=== PATIENT | female | born 1995 | race Caucasian/White ===

== ENCOUNTER 2018-10-19 11:20 | Outpatient (REF) | payer MEDICAID, SELFPAY ==
--- NOTE | 2018-10-19 10:45 | PAPFT_PTH ---
PATIENT: Mehreen Sosa LOC: [facility] U#:[id number] AGE/SX: 23/F ROOM: RE10/19/[address]: RAINER Milton : 1995 BED: DIS: 10/19/2018 SPEC #: [id number] RECD: 10/19/18 17:31 STATUS: CASIE REJs #: [id number] ALEN: 10/19/18 10:[address]: Davina Aleman [facility] Cytology RECD BY: Anne Yousif ENTERED: 10/19/18 17:32 SP TYPE: PAPFT OTHR DR: Valentin Hills Tissues: 1 - CX/ENDOCX FOR PAP SMEARS Procedures: PAP THIN PREP/[facility] Screening Comments: [id number]
[2018-10-20 12:32] LABS: Chlamydia Result Negative; GC Result Negative; Specimen Description CERVIX
== END 2018-10-19 11:40 ==
LOC: LBN 11:20
PROVIDERS: PCP Internal Medicine; Visit Provider Nurse Practitioner Family
DX: Z11.3 Encounter for screening for infections with a predominantly sexual mode of transmission (principal); Z12.4 Encounter for screening for malignant neoplasm of cervix
CPT/HCPCS: 87491; 87591; 88142

== ENCOUNTER 2019-02-15 01:53 | Outpatient (CLI) | payer MEDICAID, SELFPAY ==
--- NOTE | 2019-02-15 08:00 | PFT_ITS ---
DATE: FEBRUARY 15, 2019 REQUESTING PROVIDER: Bhavya Gonsales N.P. INTERPRETATION: SPIROMETRY: Spirometry shows mild obstructive airways disease with no significant bronchodilator response. LUNG VOLUMES: Lung volumes show no evidence of restriction. DIFFUSION CAPACITY: Borderline mildly reduced which is normal when corrected to alveolar volume. AIRWAY RESISTANCE: Normal. IMPRESSION: Mild obstructive airways disease with no significant bronchodilator response. Clinical correlation recommended.
[2019-02-15] MEDS: Inhaler, Assist Device 1 EACH MC (11:02)
[2019-02-15] MEDS: Albuterol HFA 18 GM 200 PUFF INH IH (11:03)
== END 2019-02-15 02:13 ==
PROVIDERS: PCP Internal Medicine; Visit Provider Nurse Practitioner Family
DX: R06.2 Wheezing (principal); J45.909 Unspecified asthma, uncomplicated; F17.210 Nicotine dependence, cigarettes, uncomplicated
CPT/HCPCS: 94060; 94150; 94726; 94729

== ENCOUNTER 2023-01-03 12:54 | Outpatient (REF) | payer OTHER, MEDICAID, SELFPAY ==
--- NOTE | 2023-01-03 10:50 | PAPFT_PTH ---
PATIENT: Mehreen Sosa LOC: [facility] U#:[id number] AGE/SX: 27/F ROOM: RE01/03/[address]: Dara Saunders : 1995 BED: DIS: 01/03/2023 SPEC #: [id number] RECD: 01/03/23 13:02 STATUS: CASIE REQ #: [id number] ALEN: 01/03/23 10:[address]: Dara Saunders DEPT: [facility] Cytology RECD BY: Anne Yousif ENTERED: 01/03/23 13:02 SP TYPE: PAPFT OTHR DR: Valentin Hills Tissues: 1 - CX/ENDOCX FOR PAP SMEARS Procedures: PAP THIN PREP/[facility] Screening Comments: [id number] (UNSATISFACTORY FOR EVALUATION)
[2023-01-04 15:57] LABS: Chlamydia Result Negative (Negative); GC Result Negative (Negative)
== END 2023-01-03 12:55 | disposition home or self-care (01) ==
LOC: LBN 12:54
PROVIDERS: PCP Internal Medicine; Visit Provider Advanced Practice Midwife
DX: Z11.3 Encounter for screening for infections with a predominantly sexual mode of transmission (principal); Z12.4 Encounter for screening for malignant neoplasm of cervix; R87.615 Unsatisfactory cytologic smear of cervix
CPT/HCPCS: 87491; 87591; 88142

== ENCOUNTER 2023-01-10 03:25 | Outpatient (CLI) | payer OTHER, MEDICAID, SELFPAY ==
[2023-01-11 09:26] LABS: Hepatitis B Surface Ag Negative (Negative)
[2023-01-11 09:53] LABS: Hepatitis C Ab w Rflx HCV PCR Negative (Negative)
[2023-01-11 10:14] LABS: HIV-1/2 Ag & Ab Screen Negative (Negative)
[2023-01-12 19:04] LABS: Syphilis IgG w/Reflex Nonreactive (Nonreactive)
== END 2023-01-10 03:26 | disposition home or self-care (01) ==
PROVIDERS: PCP Internal Medicine; Visit Provider Advanced Practice Midwife
DX: Z34.91 Encounter for supervision of normal pregnancy, unspecified, first trimester (principal); Z3A.00 Weeks of gestation of pregnancy not specified
CPT/HCPCS: 36415; 86803; 87340; 87389; 86780

== ENCOUNTER 2023-01-13 11:50 | Outpatient (REF) | payer OTHER, MEDICAID, SELFPAY ==
--- NOTE | 2023-01-13 11:00 | PAPFT_PTH ---
PATIENT: Mehreen Sosa LOC: [facility] U#:[id number] AGE/SX: 27/F ROOM: RE01/13/[address]: Dara Saunders : 1995 BED: DIS: 01/13/2023 SPEC #: [id number] RECD: 01/13/23 12:51 STATUS: CASIE REQ #: [id number] ALEN: 01/13/23 11:[address]: Dara Saunders DEPT: [facility] Cytology RECD BY: Anne Yousif ENTERED: 01/13/23 12:52 SP TYPE: PAPFT OTHR DR: Valentin Hills Tissues: 1 - CX/ENDOCX FOR PAP SMEARS Procedures: PAP THIN PREP/[facility] Screening Comments: [id number]
== END 2023-01-13 11:51 | disposition home or self-care (01) ==
LOC: LBN 11:50
PROVIDERS: PCP Internal Medicine; Visit Provider Advanced Practice Midwife
DX: R87.615 Unsatisfactory cytologic smear of cervix (principal)
CPT/HCPCS: 88142

== ENCOUNTER 2023-10-06 02:52 | Outpatient (CLI) | payer MEDICAID, SELFPAY ==
--- OUTSIDE RECORDS SUMMARY | 2023-10-06 02:52 | XMS_ITS | Encounter Summary ---
Author Organization [facility] Address [facility] [address] [place] [address] Care Team Providers Care Search Coordinator Name Role Phone Valentin Hills MD Primary Care Provider [phone] Encounter Details Date Type Department Care Team (Late st Contact Info) Description 04/02/2010 1:00 PM EST Follow-[place] [address] Aurelio Ga APRN [facility] [place] [address] Discharge Disposition: Home Social History Tobacco Use Types Packs/Day Years Used Date Smoking Tobacco: Never Assessed Sex and Gender Information Value Date Recorded Sex Assigned at Not on file Gender Identity Not on file Sexual Orientation Not on file documented as of this encounter Plan of Treatment Not on file documented as of this encounter Visit Diagnoses Not on filedocumented in this encounter Care Teams Search Coordinator Relationship Specialty Start Date End Date Valentin Hills MD [address] [place] [address] PCP - General 03/12/10 documented as of this encounter
--- OUTSIDE RECORDS SUMMARY | 2023-10-06 02:52 | XMS_ITS | Clinical Summary ---
Author Organization [facility] [place] [address] Care Team Providers Care Health Teacher Name Role Phone Valentin Hills MD Primary Care Provider Allergies No known active allergies Medications Medication Sig Dispensed Refills Start Date End Date Status SERTRALINE HCL (ZOLOFT ORAL) 04/02/2010 Active Social History Tobacco Use Types Packs/Day Years Used Date Smoking Tobacco: Never Assessed Sex and Gender Information Value Date Recorded Sex Assigned at Not on file Gender Identity Not on file Sexual Orientation Not on file Plan of Treatment Health Maintenance Due Date Last Done Comments HPV vaccine (1 - 3-dose series) 02/11/2012 HIV screen 2015 Hepatitis C Screening 2015 Hepatitis B vaccine (0-59 yrs) (1) 02/11/2016 Tdap adult 02/11/2016 Tetanus vaccine 02/11/2016 PAP Smear 2018 Covid-19 Vaccine (2022-24 season) 2022 Influenza (Flu) vaccine (1 o f 1 - Influenza standard series) 11/13/2023 Care Teams Health Teacher Relationship Specialty Start Date End Date Valentin iHlls MD [address] [place] [address] PCP - General 03/12/10
--- OUTSIDE RECORDS SUMMARY | 2023-10-06 02:53 | XMS_ITS | Encounter Summary ---
Author Organization [facility] Address [address] [place] [address] Care Team Providers Care Sheet Metal Journeyman Name Role Phone Valentin Hills MD Primary Care Provider [phone] Encounter Details Date Type Department Care Team (Late st Contact Info) Description 01/17/2023 Lab Requisition [facility] Pathology & Laboratory Medicine - [facility] [address] [place] [address] [place], [place] [id number] Encounter for other general examination Social History Tobacco Use Types Packs/Day Years Used Date Smoking Tobacco: Never Assessed Interpersonal Safety Answer Date Record ed Physically Hurt Never 10/14/2019 Verbally Threaten Not on file 10/14/2019 Sex and Gender Information Value Date Recorded Sex Assigned at Not on file Gender Identity Not on file Sexual Orientation Not on file documented as of this encounter Plan of Treatment Not on file documented as of this encounter Procedures Procedure Name Priority Date/Time Associated Diagnosis Comments PAP TEST Today 01/13/2023 11:00 EDT Encounter for other general examination documented in this encounter Results * PAP TEST (01/13/2023 11:00 EDT) Specimens A. Cervix and/or Endocervix , ThinPrep Imaging System with Manual Evaluation 01/20/2023 12:27 [facility] Specimen Adequacy Satisfactory for Evaluation - transformation zone component present Scant squamous epithelial component due to excess mucus. 01/20/2023 12:27 [facility] General Categorization Negative for intraepithelial lesion or malignancy 01/20/2023 12:27 [facility] Attestation . 01/20/2023 12:27 EST [facility] at 1227 Clinical History See below 01/21/20 12:27 EST [facility] Performing Lab [facility] 01/20/2023 12:27 EST [facility] Scanned Images 01/20/2023 12:27 EST [facility] Pap Test CERVIX UTERI STRUCTURE / Unknown 01/13/2023 11:00 EDT 01/17/2023 15:13 EST Dara Saunders [facility] LUDMILA BARCLAY [facility] [address] [place] [address] documented in this encounter Visit Diagnoses Diagnosis Encounter for other general examination documented in this encounter Care Teams Sheet Metal Journeyman Relationship Specialty Start Date End Date Valentin Hills MD [address] [place] [address] PCP - General 02/17/11 documented as of this encounter
--- OUTSIDE RECORDS SUMMARY | 2023-10-06 02:53 | XMS_ITS | Encounter Summary ---
Author Organization [facility] Address [address] [place] [address] Care Team Providers Care Automatic Grinding Machine Operator Name Role Phone Valentin Hills MD Primary Care Provider [phone] Encounter Details Date Type Department Care Team (Late st Contact Info) Description 01/04/2023 Lab Requisition [facility] Pathology & Laboratory Medicine - [facility] [address] [place] [address] [place], [place] [id number] Encounter for other general examination Social History [...] Date/Time Associated Diagnosis Comments PAP TEST Today 01/03/2023 10:50 EDT Encounter for other general examination documented in this encounter Results * PAP TEST (01/03/2023 10:50 EDT) Specimens A. Cervix and/or Endocervix , ThinPrep Imaging System with Manual Evaluation 01/07/2023 15:10 [facility] Specimen Adequacy Unsatisfactory for evaluation-Insuf ficient number of squamous epithelial cells. Specimen processed and examined but preparation compromised by lubricant or other vaginal contaminant. 01/07/2023 15:10 [facility] General Categorization Unsatisfactory 01/07/2023 15:10 EDT [facility] Educational Comments Unsatisfactory - Specimen processed and examined, but unsatisfactory for evaluation of epithelial abnormality. Recommend repeat age-based screening after 2-4 months per ASCCP Guidelines which may be found at www.asccp.org. HPV testing will not be performed due to the potential for false negative results. 01/07/2023 15:10 EDT [facility] Attestation . 01/07/2023 15:10 T [facility] at 1510 Clinical History See below 01/08/20 15:10 T [facility] Performing Lab [facility] 01/07/2023 15:10 T [facility] Scanned Images 01/07/2023 15:10 EDT [facility] Pap Test CERVIX UTERI STRUCTURE / Unknown 01/03/2023 10:50 EDT 01/04/2023 11:38 EDT Dara Saunders [facility] LUDMILA BARCLAY [facility] [address] [place] [address] documented in this encounter Visit Diagnoses Diagnosis Encounter for other general examination documented in this encounter Care Teams Automatic Grinding Machine Operator Relationship Specialty Start Date End Date Valentin Hills MD [address] [place] [address] PCP - General 02/17/11 documented as of this encounter
--- OUTSIDE RECORDS SUMMARY | 2023-10-06 02:53 | XMS_ITS | Referral Summary ---
Author Organization [facility] Address [address] [place] [address] Care Team Providers Care Director Of Respiratory Therapy Name Role Phone Valentin Hills MD Primary Care Provider [phone] Social History Tobacco Use Types Packs/Day Years Used Date Smoking Tobacco: Never Assessed Interpersonal Safety Answer Date Record ed Physically Hurt Never 10/14/2019 Verbally Threaten Not on file 10/14/2019 Sex and Gender Information Value Date Recorded Sex Assigned at Not on file Gender Identity Not on file Sexual Orientation Not on file Plan of Treatment Not on file Procedures Procedure Name Priority Date/Time Associated Diagnosis Comments HEPATITIS C AB W REFLEX TO HCV RNA BY PCR Routine 01/10/2023 11:45 EDT from Last 3 Months or Most Recently Relevant to Health Maintenance Results * HEPATITIS C AB W REFLEX TO HCV RNA BY PCR (01/10/2023 11:45 EDT) Hep C Antibody Negative Negative 01/11/2023 9:48 EDT [facility] Blood VENOUS BLOOD / Unknown 01/10/2023 11:45 EDT 01/10/2023 16:49 EDT Provider Outr Resulting Lab CHEMISTRY & BLOOD GAS ORDERABLES [facility] [address] [place] [address] from Last 3 Months or Most Recently Relevant to Health Maintenance Care Teams Director Of Respiratory Therapy Relationship Specialty Start Date End Date Valentin Hills MD [address] [place] [address] PCP - General 02/17/11
--- OUTSIDE RECORDS SUMMARY | 2023-10-06 02:53 | XMS_ITS | Encounter Summary ---
Author Organization [facility] Address [facility] [address] [place] [address] Care Team Providers Care Account Support Associate Name Role Phone Valentin Hills MD Primary Care Provider [phone] Encounter Details Date Type Department Care Team (Late st Contact Info) Description 03/12/2010 [place] [phone] Lily Matamoros MD [facility] [place] [address] Social History Tobacco Use Types Packs/Day Years Used Date Smoking Tobacco: Never Assessed Sex and Gender Information Value Date Recorded Sex Assigned at Not on file Gender Identity Not on file Sexual Orientation Not on file documented as of this encounter Plan of Treatment Not on file documented as of this encounter Procedures Procedure Name Priority Date/Time Associated Diagnosis Comments ABO/RH TYPING Routine 03/12/2010 6:05 PM EST ANTIBODY SCREEN Routine 03/12/2010 6:05 PM EST DIFFERENTIAL, AUTOMATED STAT 03/12/2010 5:50 PM EST CREATININE STAT 03/12/2010 5:50 PM EST APTT STAT 03/12/2010 5:50 PM EST PROTHROMBIN TIME STAT 03/12/2010 5:50 PM EST CBC (WITH DIFF) STAT 03/12/2010 5:50 PM EST BUN STAT 03/12/2010 5:50 PM EST GLUCOSE, RANDOM STAT 03/12/2010 5:50 PM EST ELECTROLYTES PANEL STAT 03/12/2010 5: 50 PM EST documented in this encounter Results * REFLEX LAB-ANTIBODY SCREEN (03/12/2010 6:05 PM EST) Ab Screen Interp Negative CERNER MILLENNIUM Expires at 2359 on: [id number] CERNER MILLENNIUM Blood specimen (specimen) 03/12/2010 6:05 PM EST 03/12/2010 6:05 PM EST Lily Matamoros MD BLOOD BANK LAB ORDER [facility] FonJaxENNIUM * REFLEX LAB-ABO/RH (03/12/2010 6:05 PM EST) ABORH Type O Pos CERNER MILLENNIUM Blood specimen (specimen) 03/12/2010 6:05 PM EST 03/12/2010 6:05 PM EST Lily Matamoros MD BLOOD BANK LAB ORDER CHARLES CERFriend TravelerENNIUM * (ABNORMAL) ELECTROLYTE PANEL (03/12/2010 5:50 PM EST) Sodium 140 135 - 145 mmol/L CERNER MILLENNIUM Potassium 3.4(L) 3.5 - 5.0 mmol/L CERNER MILLENNIUM Comment: Please note: ??Patients with WBC >100,000 may have falsely elevated Potassium levels. ??For accurate Potassium quantification in these patients send serum separator tube (gold top) for subsequent determinations. ??Contact the Clinical Chemistry Laboratory if there are any questions. Chloride 108(H) 98 - 107 mmol/L CERNER MILLENNIUM CO2 25 22 - 31 mmol/L CERNER MILLENNIUM Anion Gap 7 5 - 15 mmol/L CERNER MILLENNIUM Blood specimen (specimen) 03/12/2010 5:50 PM EST 03/12/2010 6:00 PM EST Lily Matamoros MD CHEMISTRY ORDERABLES Performing Organization Address City/[facility] Co de Phone Number CERNER LOLIENNIUM * CREATININE, SERUM (03/12/2010 5:50 PM EST) Creatinine 0.53 0.20 - 0.70 mg/dL CERNER MILLENNIUM Estimated GFR See note >=60 CERNER MILLENNIUM Comment: Calculated GFR not appropriate for patients less than 18 years of age. The National Kidney Disease Education Program (NKDEP) has recommended all laboratories report estimated GFR (eGFR) along with plasma creatinine measurements to assist you with recognition of early kidney disease. Caveats: ??Plasma creatinine should be at steady-state (unchanged within the past week). ??Patient age > = 18 years, and for Americans multiply eGFR by 1.2. At present, NKDEP does NOT recommend using the MDRD equation for drug dosing purposes and pharmacists should continue to use their current dosing methods. In addition, numerical eGFR values greater than 60 ml/min/1.73 square meters should be treated as > 60, and not an exact number due to greater inaccuracies at these higher values. Per NKDEP, they classify normal renal function as any GFR >60ml/min/1.73 square meters; chronic kidney disease when GFR <60, and renal failure when GFR <15. ??This calculation may not be valid for patients with atypical muscle mass (very lean or obese), acute renal failure, and in patients with diabetic kidney disease. References: http://nkdep.nih.gov/resources/NKDEP_Suggestn4Labs_0606_508.pdf http://www.kidney.org/professionals/kls/pdf/faq_gfr.pdf Blood specimen (specimen) 03/12/2010 5:50 PM EST 03/12/2010 6:00 PM EST Lily Matamoros MD CHEMISTRY ORDERABLES [facility] * BUN (03/12/2010 5:50 PM EST) BUN 8 5 - 20 mg/dL [facility] Blood specimen (specimen) 03/12/2010 5:50 PM EST 03/12/2010 6:00 PM EST Lily Matamoros MD CHEMISTRY ORDERABLES Performing Organization Address [facility] Phone Number [facility] * GLUCOSE, RANDOM (03/12/2010 5:50 PM EST) Glucose Lvl 80 <=199 mg/dL [facility] Comment:Diabetes: >=200 mg/d L plus symptoms Blood specimen (specimen) 03/12/2010 5:50 PM EST 03/12/2010 6:00 PM EST Lily Matamoros MD CHEMISTRY ORDERABLES Performing Organization Address [facility] Phone Number [facility] * APTT (03/12/2010 5:50 PM EST) PTT 29 25 - 37 sec [facility] Comment: Recommended therapeutic PTT range for full dose unfractionated heparin is 80-114 seconds. Blood specimen (specimen) 03/12/2010 5:50 PM EST 03/12/2010 6:01 PM EST Lily Matamoros MD HEMATOLOGY ORDERABLE S Performing Organization Address [facility] Phone Number [facility] * (ABNORMAL) PROTIME-INR (03/12/2010 5:50 PM EST) PT 15.1 12.7 - 16.1 sec [facility] Comment: [facility] Transfusion Committee Guidelines: INR less than 2.0, PTT less than OR equal to 43.5 seconds, or Fibrinogen greater than or equal to 100 mg/dl indicate adequate procoagulant activity for hemostasis in patients without underlying bleeding disorders. INR 1.2(H) 0.9 - 1.1 [facility] Blood specimen (specimen) 03/12/2010 5:50 PM EST 03/12/2010 6:01 PM EST Lily Matamoros MD HEMATOLOGY ORDERABLE S CERJACEK ENNISENNIUM * REFLEX LAB-A-DIFF (03/12/2010 5:50 PM EST) Neutrophils % 60.5 37.0 - 77.0 % CERNER MILLENNIUM Neutr Abs (ANC) 6.27 1.50 - 8.00 x10(3)/mcL CERNER MILLENNIUM Lymphocytes % 31.3 20.0 - 50.0 % CERNER MILLENNIUM Lymphocytes Abs 3.2 1.2 - 5.2 x10(3)/mcL CERNER MILLENNIUM Monocytes % 7.0 2.0 - 12.0 % CERNER MILLENNIUM Monocyte Abs 0.7 0.2 - 1.0 x10(3)/mcL CERNER MILLENNIUM Eosinophils % 0.7 0.0 - 7.0 % CERNER MILLENNIUM Eosinophils Abs 0.1 0.0 - 0.5 x10(3)/mcL CERNER MILLENNIUM Basophils % 0.2 0.0 - 2.0 % CERNER MILLENNIUM Basophils Abs 0.0 0.0 - 0.2 x10(3)/mcL CERNER MILLENNIUM Immature Gran % 0.30 0.00 - 0.66 % CERNER MILLENNIUM Comment: Immature granulocytes(IG's)percentage and absolute count will include metamyelocytes, myelocytes, and promyelocytes. Blood smears from CBCs yielding IG's will be scanned manually for concordance. If this scan disagrees with the automated IG or if promyelocytes are noted, a manual differential will be performed.v Summer Gran Abs 0.03 0.00 - 0.05 x10(3)/mcL CERNER MILLENNIUM Blood specimen (specimen) 03/12/2010 5:50 PM EST 03/12/2010 6:00 PM EST Lily Matamoros MD HEMATOLOGY ORDERABLE S GIGI MULLEN * (ABNORMAL) CBC (03/12/2010 5:50 PM EST) WBC 10.4 4.5 - 13.0 x10(3)/mcL CERNER MILLENNIUM RBC 4.15 4.10 - 5.10 x10(6)/mcL CERNER MILLENNIUM Hemoglobin 12.3 12.0 - 16.0 gm/dL CERNER MILLENNIUM Hematocrit 35.8(L) 36.0 - 46.0 % CERNER MILLENNIUM MCV 86.3 76.0 - 98.0 fL CERNER MILLENNIUM MCH 29.6 25.0 - 35.0 pg CERNER MILLENNIUM MCHC 34.4 32.0 - 36.5 gm/dL CERNER MILLENNIUM Platelets 236 145 - 370 x10(3)/mcL CERNER MILLENNIUM RDWSD 39.6 35.0 - 46.0 fL CERNER MILLENNIUM RDWCV 12.6 10.9 - 14.4 % CERNER MILLENNIUM MPV 10.4 9.0 - 12.0 fL CERNER MILLENNIUM Blood specimen (specimen) 03/12/2010 5:50 PM EST 03/12/2010 6:00 PM EST Lily Matamoros MD HEMATOLOGY ORDERABLE S GIGI MULLEN documented in this encounter Visit Diagnoses Not on filedocumented in this encounter Care Teams Account Support Associate Relationship Specialty Start Date End Date Valentin Hills MD [address] [place] [address] PCP - General 03/12/10 documented as of this encounter
--- OUTSIDE RECORDS SUMMARY | 2023-10-06 02:53 | XMS_ITS | Encounter Summary ---
Author Organization [facility] Address [address] [place] [address] Care Team Providers Care Director Decision Support Name Role Phone Valentin Hills MD Primary Care Provider [phone] Encounter Details Date Type Department Care Team (Late st Contact Info) Description 01/10/2023 Lab Requisition [facility] Pathology & Laboratory Medicine - [facility] [address] [place], [place] [id number] Outr Resulting Lab, Provider Social History Tobacco Use Types Packs/Day Years [...] RNA BY PCR Routine 01/10/2023 11:45 EDT HEPATITIS B SURFACE ANTIGEN Routine 01/10/2023 11:45 EDT documented in this encounter Results * HEPATITIS B SURFACE ANTIGEN (01/10/2023 11:45 EDT) Hep B Surface Ag Negative Negative 01/11/2023 9:20 EDT [facility] Blood VENOUS BLOOD / Unknown 01/10/2023 11:45 EDT 01/10/2023 16:49 EDT Provider Outr Resulting Lab CHEMISTRY & BLOOD GAS ORDERABLES [facility] [address] [place] [address] * HEPATITIS C AB W REFLEX TO HCV RNA BY PCR (01/10/2023 11:45 EDT) Hep C Antibody Negative Negative 01/11/2023 9:48 EDT [facility] Blood VENOUS BLOOD / Unknown 01/10/2023 11:45 EDT 01/10/2023 16:49 EDT Provider Outr Resulting Lab CHEMISTRY & BLOOD GAS ORDERABLES Performing Organization Address City/[facility] Co de Phone Number [facility] [address] [place] [address] documented in this encounter Visit Diagnoses Not on filedocumented in this encounter Care Teams Director Decision Support Relationship Specialty Start Date End Date Valentin Hills MD [address] [place] [address] PCP - General 02/17/11 documented as of this encounter
--- OUTSIDE RECORDS SUMMARY | 2023-10-06 02:53 | XMS_ITS | Encounter Summary ---
Author Organization [facility] Address [address] [place] [address] Care Team Providers Care Vending Machine Refiller Name Role Phone Valentin Hills MD Primary Care Provider [phone] Encounter Details Date Type Department Care Team (Late st Contact Info) Description 10/19/2018 Results Only [facility] [phone] Davina Aleman, [facility] [address] [place] [phone] Social History Tobacco Use Types Packs/Day Years Used Date Smoking Tobacco: Never Assessed Sex and Gender Information Value Date Recorded Sex Assigned at Not on file Gender Identity Not on file Sexual Orientation Not on file documented as of this encounter Plan of Treatment Not on file documented as of this encounter Procedures Procedure Name Priority Date/Time Associated Diagnosis Comments PAP TEST- RESULT ONLY Routine 10/19/2018 0:00 EDT documented in this encounter Results * PAP TEST- RESULT ONLY (10/19/2018 0:00 EDT) Pathology Report: CYTOPATHOLOGY REPORT Reports generated via electronic interface contain original data; however they are lacking the format of the original report. Caution should be taken when reading/interpreti ng unformatted reports. Name: ? MEHREEN TORO ? Accession #: ? [id number] : ? 1995 (Age: 23) ??F ?Collect Date: ? 10/19/2018 Location: ? [facility] ? Receive Date: ? 10/20/2018 Provider: ?DAVINA ALEMAN DENTAL SCHEDULER Copy to: ?VALENTIN HILLS MD ? Specimen/Source: ?Pap Test, Cervix, ThinPrep Imaging System with manual evaluation Last Menstrual Period: ? 08/28/2018 Hormonal/Contracep tive Status: ? Oral contraceptives Other: ? First Pap ? SPECIMEN ADEQUACY ? Satisfactory for Evaluation - transformation zone component present GENERAL CATEGORIZATION ? Negative for Intraepithelial Lesion or Malignancy ? Document reviewed and electronically signed by: ? Nik Santos, KARLA(ASCP) ? Report Date: ??10/26/2018 11:16 End of Report [facility] 10/19/2018 10/20/2018 Davina Aleman DENTAL SCHEDULER PATHOLOGY ORDERABLES [facility] [address] [place] [address] documented in this encounter Visit Diagnoses Not on filedocumented in this encounter Care Teams Vending Machine Refiller Relationship Specialty Start Date End Date Valentin Hills MD [address] [place] [address] PCP - General 02/17/11 documented as of this encounter
--- OUTSIDE RECORDS SUMMARY | 2023-10-06 02:53 | XMS_ITS | Encounter Summary ---
Author Organization [facility] Address [address] [place] [address] Care Team Providers Care Biomedical Electronics Technician Name Role Phone Valentin Hills MD Primary Care Provider [phone] Encounter Details Date Type Department Care Team (Late st Contact Info) Description 01/03/2023 Lab Requisition [facility] Pathology & Laboratory Medicine - [facility] [address], [place] [id number] Outr Resulting Lab, Provider Social History Tobacco [...] Procedure Name Priority Date/Time Associated Diagnosis Comments CHLAMYDIA/N. GONORRHOEAE AMPLIFIED NUCLEIC ACID Routine 01/03/2023 10:50 EDT documented in this encounter Results * CHLAMYDIA/N. GONORRHOEAE AMPLIFIED RNA (01/03/2023 10:50 EDT) Neisseria gonorrhoeae Result Negative Negative 01/04/2023 15:50 EDT [facility] Chlamydia trachomatis Result Negative Negative 01/04/2023 15:50 EDT [facility] Swab ENDOCERVICAL STRUCTURE / Unknown 01/03/2023 10:50 EDT 01/03/2023 21:54 EDT Provider Outr Resulting Lab MICROBIOLOGY - GENERAL ORDERABLES Performing Organization Address [facility]/State/ZIP Co de Phone Number [facility] [address] [place] [address] documented in this encounter Visit Diagnoses Not on filedocumented in this encounter Care Teams Biomedical Electronics Technician Relationship Specialty Start Date End Date Valentin Hills MD [address] [place] [id number] PCP - General 02/17/11 documented as of this encounter
--- OUTSIDE RECORDS SUMMARY | 2023-10-06 02:53 | XMS_ITS | Clinical Summary ---
Author Organization [facility] Address [address] [place] [address] Care Team Providers Care Library Serials Assistant Name Role Phone Valentin Hills MD Primary Care Provider [phone] Social History Tobacco Use Types Packs/Day Years Used Date Smoking Tobacco: Never Assessed Interpersonal Safety Answer Date Record ed Physically Hurt Never 10/14/2019 Verbally Threaten Not on file 10/14/2019 Sex and Gender Information Value Date Recorded Sex Assigned at Not on file Gender Identity Not on file Sexual Orientation Not on file Plan of Treatment Health Maintenance Due Date Last Done Comments Hepatitis B Vaccine (1 of 3 - 19+ 3-dose series) 02/10 COVID-19 Vaccine (24 season) 2022 Hepatitis C Screen Completed 01/10/2023 Procedures Procedure Name Priority Date/Time Associated Diagnosis Comments HEPATITIS C AB W REFLEX TO HCV RNA BY PCR Routine 01/10/2023 11:45 EDT from Last 3 Months or Most Recently Relevant to Health Maintenance Results * HEPATITIS C AB W REFLEX TO HCV RNA BY PCR (01/10/2023 11:45 EDT) Hep C Antibody Negative Negative 01/11/2023 9:48 EDT [facility] Blood VENOUS BLOOD / Unknown 01/10/2023 11:45 EDT 01/10/2023 16:49 EDT Provider Outr Resulting Lab CHEMISTRY & BLOOD GAS ORDERABLES [facility] [address] [place] [address] from Last 3 Months or Most Recently Relevant to Health Maintenance Care Teams Library Serials Assistant Relationship Specialty Start Date End Date Valentin Hills MD [address] [place] [id number] PCP - General 02/17/11
--- OUTSIDE RECORDS SUMMARY | 2023-10-06 02:53 | XMS_ITS | Encounter Summary ---
Author Organization [facility] Address [address] [place] [address] Care Team Providers Care Vocational Technical Education Teacher Name Role Phone Valentin Hills MD Primary Care Provider [phone] Encounter Details Date Type Department Care Team (Late st Contact Info) Description 01/10/2023 Lab Requisition [facility] Pathology & Laboratory Medicine - [facility] [address], [place] [id number] Outr Resulting Lab, Provider Social History Tobacco [...] Procedure Name Priority Date/Time Associated Diagnosis Comments HIV 1/2 ANTIGEN AND ANTIBODY, 4TH GENERATION Routine 01/10/2023 11:45 EDT documented in this encounter Results * HIV 1/2 ANTIGEN AND ANTIBODY, 4TH GENERATION (01/10/2023 11:45 EDT) HIV 1 and 2 Antibody/p24 Antigen, 4th Generation Negative Negative 01/11/2023 10:10 EDT [facility] Comment:If acute HIV-1 infec tion is suspected in a high risk patient, submit plasma specimen for HIV-1 RNA quantitation test. Blood VENOUS BLOOD / Unknown 01/10/2023 11:45 EDT 01/10/2023 16:49 EDT Narrative [facility] - 01/11/2023 10:10 EDT Fourth Generation assay performed on the Siemens Centaur XPT. Provider Outr Resulting Lab IMMUNOLOGY A ND SEROLOGY ORDERABLES [facility] [address] [place] [address] documented in this encounter Visit Diagnoses Not on filedocumented in this encounter Care Teams Vocational Technical Education Teacher Relationship Specialty Start Date End Date Valentin Hills MD [address] [place] [id number] PCP - General 02/17/11 documented as of this encounter
--- OUTSIDE RECORDS SUMMARY | 2023-10-06 02:53 | XMS_ITS | Encounter Summary ---
Author Organization [facility] Address [address] [place] [address] Care Team Providers Care Title Insurance Agent Name Role Phone Unknown, Provider Primary Care Provider [phone] Encounter Details Date Type Department Care Team (Late st Contact Info) Description 02/12/2011 Results Only [facility] [phone] Katelynn Pacheco, DO [address] [place] [address] Social History Tobacco Use Types Packs/Day Years Used Date Smoking Tobacco: Never Assessed Sex and Gender Information Value Date Recorded Sex Assigned at Not on file Gender Identity Not on file Sexual Orientation Not on file documented as of this encounter Plan of Treatment Not on file documented as of this encounter Procedures Procedure Name Priority Date/Time Associated Diagnosis Comments SURGICAL PATHOLOGY Routine 02/12/2011 0:00 EST documented in this encounter Results * SURGICAL PATHOLOGY (02/12/2011 0:00 EST) Pathology Report: SURGICAL PATHOLOGY REPORT Reports generated via electronic interface contain original data; however they are lacking the format of the original report. Caution should be taken when reading/interpreti ng unformatted reports. Name: ? MEHREEN TORO ? Accession #: ? [id number] ? : ? 1995 (Age: 16) ??F ? Collect Date: ? 02/12/2011 ? Location: ? [facility] ? Receive Date: ? 02/15/2011 ? Provider: KATELYNN PACHECO DO Copy to: DANI DAVIES MD ? Final Pathologic Diagnosis: ? Appendix, appendectomy: - Acute suppurative appendicitis and periappendicitis. Document reviewed and electronically signed by: TAMMIE WADE MD Report ??Date: 02/18/2011 17:20 By the signature above, the attending physician certifies that he/she has personally conducted a gross and/or microscopic examination of the described specimens and rendered or confirmed the above diagnosis. Specimen(s) Received: ? Appendix Clinical History: ? Acute appendicitis Gross Description: ? Received in formalin labelled Mehreen Toro and appendix is a 5.5 cm in length vermiform appendix, which ranges from 1.3 cm in diameter, 2.0 cm from the stapled proximal resection margin, to 0.6 cm in diameter distally. ??The stapled resection margin of the appendix is black inked. ??The specimen includes a moderate amount of attached mesoappendix. ??The mucosa of the appendix is bloom-white and focally mildly hyperemic, while the serosa of the vermiform appendix is yellow and focally hyperemic. ??Sections reveal that the proximal one-third of the appendiceal lumen is dilated, measuring up to 0.7 cm in diameter, and the lumen immediately proximal to the dilatation has a 0.5 cm in greatest dimension brown fecalith. ??The remaining appendiceal lumen is of normal caliber and the wall has a thickness which ranges from 0.5 cm to 0.2 cm, with no discernible perforations. ??A cross section taken adjacent to the black inked stapled proximal margin, along with one-half of the longitudinally bisected distal tip of the appendix and cross sections of distal, middle, and proximal one-third of the appendix are submitted in one cassette. ??(J. Tessitore)/ljn End of Report [facility] 02/12/2011 02/15/2011 16: 11 EST Katelynn Pacheco DO PATHOLOGY ORDERABLES Performing Organization Address City/State/[facility] Co de Phone Number [facility] [address] [place] [address] documented in this encounter Visit Diagnoses Not on filedocumented in this encounter Care Teams Title Insurance Agent Relationship Specialty Start Date End Date Unknown, Provider, PCP - General 02/15/11 02/16/11 documented as of this encounter
--- OUTSIDE RECORDS SUMMARY | 2023-10-06 02:53 | XMS_ITS | Encounter Summary ---
Author Organization [facility] [place] [address] Care Team Providers Care Wind Turbine Performance Engineer Name Role Phone Valentin Hills MD Primary Care Provider [phone] Encounter Details Date Type Department Care Team (Late st Contact Info) Description 03/12/2010 4:11 PM EST - 03/12/2010 11:17 PM EST [place] [address] Lily Matamoros MD [facility] [address] EMER[place]Y [place] [address] Discharge Disposition: Home Social History Tobacco Use [...] on filedocumented in this encounter Care Teams Wind Turbine Performance Engineer Relationship Specialty Start Date End Date Valentin Hills MD [address] [place] [address] PCP - General 03/12/10 documented as of this encounter
[2023-10-06 13:16] LABS: Abs Immature Grans 0.04 10^3/uL (0.0-0.06); Absolute Basophil Count 0.03 10^3/uL (0.0-0.2); Absolute Eosinophil Count 0.08 10^3/uL (0.0-0.7); Absolute Monocyte Count 0.56 10^3/uL (0.1-0.8); Absolute Neutrophil Count 8.14 10^3/uL (1.2-6.7); Basophils % 0.2 %; Eosinophils % 0.6 %; HCT 44.4 % (36.0-46.0); HGB 14.8 g/dL (11.2-15.7); Immature Grans % 0.3 %; Lymphocytes % 34.7 %; MCH 30.8 pg (27.0-33.0); MCHC 33.3 % (32.0-36.0); MCV 92 fL (80-95); MPV 9.9 fL (8.0-11.0); Monocytes % 4.1 %; Neutrophils % 60.1 %; Platelet Count 300 10^3/uL (130-400); RBC 4.81 10^6/uL (3.93-5.22); RDW 14.3 % (11.7-14.6); RDW-SD 48.6 fL; WBC 13.55 10^3/uL (4.4-10.8)
[2023-10-06 13:24] LABS: Hemoglobin A1C 5.6 % (<5.7)
[2023-10-06 14:08] LABS: ALT 20 U/L (14-59); AST 16 U/L (15-37); Albumin 3.5 g/dL (3.4-5.0); Alkaline Phosphatase 91 U/L (46-116); Anion Gap 10.8 mmol/L (3-11); BUN 8 mg/dL (7-18); Bilirubin, Total 0.27 mg/dL (0.2-1.0); CO2 25.2 mmol/L (21.0-32.0); CREATININE 0.8 mg/dL (0.55-1.02); Calcium 9.3 mg/dL (8.5-10.1); Chloride 102 mmol/L (98-107); Estimated GFR 104.15 (mL/min/1.73m2); Glucose 99 mg/dL (74-106); Sodium 138 mmol/L (136-145); TSH (W/Ref FT4) 0.59 uIU/mL (0.36-3.74); Total Protein 7.4 g/dL (6.4-8.2); Vitamin B12 414 pg/mL (193-986); Vitamin D 25 Total 94.5 ng/mL (30-100)
== END 2023-10-06 02:53 | disposition home or self-care (01) ==
LOC: LBO 02:52
PROVIDERS: PCP Internal Medicine; Visit Provider Registered Nurse
DX: F32.1 Major depressive disorder, single episode, moderate (principal); F41.1 Generalized anxiety disorder; F43.10 Post-traumatic stress disorder, unspecified
CPT/HCPCS: 36415; 80053; 82306; 82607; 83036; 84443; 85025

== ENCOUNTER 2023-12-07 02:32 | Outpatient (CLI) | payer MEDICAID, SELFPAY ==
[2023-12-07 11:39] LABS: Panorama Kit Sent via Fed Ex
[2023-12-07 11:51] LABS: Abs Immature Grans 0.02 10^3/uL (0.0-0.06); Absolute Basophil Count 0.02 10^3/uL (0.0-0.2); Absolute Eosinophil Count 0.03 10^3/uL (0.0-0.7); Absolute Lymphocyte Count 3.56 10^3/uL (1.2-3.4); Absolute Monocyte Count 0.72 10^3/uL (0.1-0.8); Basophils % 0.2 %; Eosinophils % 0.3 %; HCT 37.9 % (36.0-46.0); HGB 13.1 g/dL (11.2-15.7); Immature Grans % 0.2 %; Lymphocytes % 34.4 %; MCHC 34.6 % (32.0-36.0); MCV 90 fL (80-95); MPV 10.3 fL (8.0-11.0); Neutrophils % 57.9 %; Platelet Count 243 10^3/uL (130-400); RBC 4.23 10^6/uL (3.93-5.22); RDW 13.6 % (11.7-14.6); RDW-SD 44.8 fL; WBC 10.35 10^3/uL (4.4-10.8)
[2023-12-07 12:29] LABS: TSH (W/Ref FT4) 1.28 uIU/mL (0.36-3.74)
[2023-12-07 18:51] LABS: Hepatitis B Surface Ag Negative (Negative)
[2023-12-07 19:19] LABS: Hepatitis C Ab w Rflx HCV PCR Negative (Negative)
[2023-12-07 20:41] LABS: HIV-1/2 Ag & Ab Screen Negative (Negative)
[2023-12-08 11:00] LABS: Varicella IgG Antibody Positive (See Note)
[2023-12-08 11:06] LABS: Rubella IgG Ab (UVM) Positive (See Note)
[2023-12-09 18:36] LABS: Syphilis IgG w/Reflex Nonreactive (Nonreactive)
[2023-12-24 03:11] LABS: Result Summary NEGATIVE; Specimen WB Whole Blood
== END 2023-12-07 02:33 | disposition home or self-care (01) ==
LOC: LBO 02:32
PROVIDERS: PCP Internal Medicine; Visit Provider Advanced Practice Midwife
DX: Z34.91 Encounter for supervision of normal pregnancy, unspecified, first trimester (principal)
CPT/HCPCS: 36415; 81220; 81222; 86787; 86803; 86850; 86900; 86901; 87340; 87389; 84443; 85025; 86762; 86780

== ENCOUNTER 2023-12-07 10:51 | Outpatient (REF) | payer MEDICAID, SELFPAY ==
[2023-12-07 12:29] LABS: *AMPHETAMINES SCREEN URINE Negative (Negative); *BARBITURATES SCREEN URINE Negative (Negative); *BENZODIAZEPINES SCREEN URINE Negative (Negative); Cannabinoids THC Positive (Negative); Cocaine Screen,Urine Negative (Negative); METHADONE URINE SCREEN Negative (Negative); OPIATES URINE SCREEN Negative (Negative); Tricyclic Antidepressants Negative (Negative)
[2023-12-08 11:45] LABS: Fentanyl Scr w/Rfx Confirm Negative ng/mL (<1)
[2023-12-08 12:18] LABS: Chlamydia Result Negative (Negative); GC Result Negative (Negative)
[2023-12-13 08:49] LABS: Buprenorphine Negative ng/mL (Cutoff: 5.0); Norbuprenorphine Negative ng/mL (Cutoff: 2.5)
== END 2023-12-07 10:52 | disposition home or self-care (01) ==
LOC: LBN 10:51
PROVIDERS: PCP Internal Medicine; Visit Provider Advanced Practice Midwife
DX: Z34.91 Encounter for supervision of normal pregnancy, unspecified, first trimester (principal); Z81.3 Family history of other psychoactive substance abuse and dependence
CPT/HCPCS: 80307; 80348; 87491; 87591; 87086

== ENCOUNTER 2024-01-25 00:56 | Outpatient (CLI) | payer MEDICAID, SELFPAY ==
--- NOTE | 2024-01-25 06:30 | DI.US_ITS ---
Exam(s) US OB 2-3 TRIMESTER EXAM: US OB 2-3 TRIMESTER CLINICAL HISTORY: survey,z34.90,z34.91. TECHNIQUE: Transabdominal obstetrical ultrasound performed. COMPARISON: US POCUS EXAM from 11/22/2023 FINDINGS: Number of fetuses: 1 position: BREECH heart rate: 136bpm Placental location: ANTERIOR No evidence of previa. BIOMETRIC DATA: BPD: 4.61cm, 20weeks HC: 17.15cm, 19weeks 5days AC: 16.1cm, 21weeks 1day FL: 2.96cm, 19weeks 1day Cisterna magna: 3.9mm Cerebellum: 1.91cm Lateral ventricle: EFW: 337.57g, 0.77lb, 91% Composite Age: 20weeks NELLY: 06/13/2024 Heart Rate: 136bpm Amniotic fluid i: Amount of fluid is within normal limits. ANATOMICAL SURVEY: Four-chambered heart: Unremarkable. LVOT: Unremarkable. RVOT: Unremarkable. Left-sided stomach: Unremarkable. urinary bladder: Unremarkable. Bilateral kidneys: Mild bilateral pelviectasis, 6 millimeters on the right and 5 millimeters on the left. Three-vessel cord: Unremarkable. Cord insertion: Unremarkable. Posterior fossa:Unremarkable. ventricles: Unremarkable. nose: Unremarkable. lips: Unremarkable. palate: Unremarkable. spine: Unremarkable. Two arms and two legs: Unremarkable. IMPRESSION: 1. Single live intrauterine gestation with composite age of 20 weeks 0 days. 2. Mild bilateral pelviectasis. survey is otherwise unremarkable. DATA REPOSITORY:
== END 2024-01-25 01:16 ==
LOC: DI 00:56
PROVIDERS: PCP Internal Medicine; Visit Provider Advanced Practice Midwife
DX: Z34.91 Encounter for supervision of normal pregnancy, unspecified, first trimester (principal); Z3A.20 20 weeks gestation of pregnancy
CPT/HCPCS: 76805

== ENCOUNTER 2024-03-21 02:21 | Outpatient (CLI) | payer MEDICAID, SELFPAY ==
--- NOTE | 2024-03-21 07:15 | DI.US_ITS ---
Exam(s) US OB NICK WEIGHT EXAM: US OB NICK WEIGHT CLINICAL HISTORY: pyelectasis,Check kidneys,o35.exx0. TECHNIQUE: Transabdominal obstetrical ultrasound performed. COMPARISON: US US OB 2-3 TRIMESTER from 01/25/2024 FINDINGS: Number of fetuses: 1 position: CEPHALIC Placental location: There is a grade 2 anterior placenta. No evidence of previa. BIOMETRIC DATA: BPD: 7.09cm, 28weeks 3days HC: 26.33cm, 28weeks 5days AC: 23.13cm, 27weeks 3days FL: 5.03cm, 27weeks EFW: 1,083.91g, 2lb 7.07oz, 46% Composite Age: 27weeks 6days NELLY: 06/14/2024 Heart Rate: 142bpm Amniotic fluid index: 19.85cm. The largest pocket is 5.6 cm. There is right pyelectasis with a AP diameter of 5 mm. The left renal pelvis is within normal limits at 3 mm. IMPRESSION: 1. Single live intrauterine gestation as above. 2. There is persistent right pyelectasis at 5 mm. The left renal pelvis is within normal limits at 3 mm. 3. Estimated weight is 1084gms. This is the 46th percentile. 4. Amniotic fluid index is 20 cm. The largest pocket is 5.6 cm. DATA REPOSITORY:
== END 2024-03-21 02:41 ==
LOC: DI 02:21
PROVIDERS: PCP Internal Medicine; Visit Provider Advanced Practice Midwife
DX: O35.EXX1 Maternal care for other (suspected) fetal abnormality and damage, fetal genitourinary anomalies, fetus 1 (principal); Z3A.27 27 weeks gestation of pregnancy
CPT/HCPCS: 76816

== ENCOUNTER 2024-03-21 04:13 | Outpatient (CLI) | payer MEDICAID, SELFPAY ==
[2024-03-21 09:57] LABS: HCT 38.1 % (36.0-46.0); HGB 12.8 g/dL (11.2-15.7); MCH 32.5 pg (27.0-33.0); MCHC 33.6 % (32.0-36.0); MCV 97 fL (80-95); MPV 9.7 fL (8.0-11.0); Platelet Count 234 10^3/uL (130-400); RBC 3.94 10^6/uL (3.93-5.22); RDW 12.9 % (11.7-14.6); WBC 11.61 10^3/uL (4.4-10.8)
[2024-03-21 10:04] LABS: Glucose,1 Hr (Glucola) 75 mg/dL (80-140)
== END 2024-03-21 04:14 | disposition home or self-care (01) ==
LOC: LBO 04:13
PROVIDERS: PCP Internal Medicine; Visit Provider Advanced Practice Midwife
DX: Z34.92 Encounter for supervision of normal pregnancy, unspecified, second trimester (principal)
CPT/HCPCS: 36415; 82950; 85027

== ENCOUNTER 2024-03-21 10:21 | Outpatient (REF) | payer MEDICAID, SELFPAY ==
[2024-03-21 11:37] LABS: *AMPHETAMINES SCREEN URINE Negative (Negative); *BARBITURATES SCREEN URINE Negative (Negative); *BENZODIAZEPINES SCREEN URINE Negative (Negative); Cannabinoids THC Negative (Negative); Cocaine Screen,Urine Negative (Negative); METHADONE URINE SCREEN Negative (Negative); OPIATES URINE SCREEN Negative (Negative)
[2024-03-21 11:43] LABS: Tricyclic Antidepressants Negative (Negative)
[2024-03-22 12:03] LABS: Fentanyl Scr w/Rfx Confirm Negative ng/mL (<1)
[2024-03-27 08:58] LABS: Buprenorphine Negative ng/mL (Cutoff: 5.0); Norbuprenorphine Negative ng/mL (Cutoff: 2.5)
== END 2024-03-21 10:22 | disposition home or self-care (01) ==
LOC: LBN 10:21
PROVIDERS: PCP Internal Medicine; Visit Provider Advanced Practice Midwife
DX: Z34.92 Encounter for supervision of normal pregnancy, unspecified, second trimester (principal)
CPT/HCPCS: 80307; 80348

== ENCOUNTER 2024-05-21 03:06 | Outpatient (CLI) | payer MEDICAID, SELFPAY ==
--- NOTE | 2024-05-21 06:30 | DI.US_ITS ---
Exam(s) US OB NICK WEIGHT EXAM: US OB NICK WEIGHT CLINICAL HISTORY: interval growth,reassessment of kidneys,O35.EXXO. TECHNIQUE: Transabdominal obstetrical ultrasound performed. COMPARISON: US US OB NICK WEIGHT from 03/21/2024 FINDINGS: Number of fetuses: 1 position: CEPHALIC Placental location: There is a grade 2 anterior placenta. No evidence of previa. No evidence of pre via. BIOMETRIC DATA: BPD: 9.06cm, 36weeks 5days HC: 32.38cm, 36weeks 4days AC: 32.88cm, 36weeks 6days FL: 6.54cm, 33weeks 5days EFW: 2,822.17g, 6lb 5.33oz, 51% Composite Age: 36weeks NELLY: 06/18/2024 Heart Rate: 150bpm Amniotic fluid index: 17.07cm. The largest pocket measures 7.8 cm. The right renal pelvis now measures 7 mm. This compares to 5 mm on the prior examination. The left renal pelvis is stable at 3 mm. IMPRESSION: 1. Single live intrauterine gestation as above. 2. Estimated weight is 2822gms. This is the 51st percentile. 3. Amniotic fluid index is 17.1 cm. The largest pocket measures 7.8 cm. 4. The right renal pelvis now measures 7 mm compared to 5 mm on the prior examination. The left kendra l pelvis is stable at 3 mm. Unexpected findings DATA REPOSITORY:
== END 2024-05-21 03:26 ==
PROVIDERS: PCP Nurse Practitioner Family; Visit Provider Advanced Practice Midwife
DX: O35.EXX0 Maternal care for other (suspected) fetal abnormality and damage, fetal genitourinary anomalies, not applicable or unspecified (principal); Z3A.36 36 weeks gestation of pregnancy
CPT/HCPCS: 76816

== ENCOUNTER 2024-05-28 09:50 | Outpatient (REF) | payer MEDICAID, SELFPAY | END 2024-05-28 09:51 | disposition home or self-care (01) | LOC: LBN 09:50 | PROVIDERS: PCP Nurse Practitioner Family; Visit Provider Advanced Practice Midwife | DX: Z34.93 Encounter for supervision of normal pregnancy, unspecified, third trimester (principal); Z3A.35 35 weeks gestation of pregnancy | CPT/HCPCS: 87081 ==

== ENCOUNTER 2024-06-03 17:32 | Outpatient (CLI) | payer MEDICAID, SELFPAY ==
[2024-06-03 18:50] LABS: HCT 40.5 % (36.0-46.0); MCHC 34.6 % (32.0-36.0); MCV 93 fL (80-95); MPV 11.1 fL (8.0-11.0); Platelet Count 216 10^3/uL (130-400); RBC 4.37 10^6/uL (3.93-5.22); RDW 12.8 % (11.7-14.6); RDW-SD 43.4 fL; WBC 19.68 10^3/uL (4.4-10.8)
== END 2024-06-03 17:33 | disposition home or self-care (01) ==
LOC: BCD 17:34
PROVIDERS: PCP Nurse Practitioner Family; Visit Provider Advanced Practice Midwife
DX: O12.03 Gestational edema, third trimester (principal); Z3A.37 37 weeks gestation of pregnancy
CPT/HCPCS: 85027; 86850; 86900; 86901

== ENCOUNTER 2024-06-03 18:20 | Inpatient (IN) | payer MEDICAID, SELFPAY ==
[2024-06-03] VITALS (71 sets, daily range): BP systolic 123–158; BP diastolic 66–90; PULSE 76–131; TEMP 37.1–37.2; O2SAT 90–100
--- NOTE | 2024-06-03 19:10 | W.PM.OBHPL1 ---
Date of service: 06/03/24 Time of Service: 19:10 Assessment and Plan Assessment and plan (1) Normal labor: Status: Acute Assessment and plan: A: Spontaneous Labor at 37w6d Cat 1 FHT Membranes Intact P: Admit, IV Fentanyl ordered, routine labs. anticipated (2) Ultrasound recheck of pyelectasis, antepartum: Status: Acute OB-HPI Labor/Delivery History of Present Illness Reason for Visit: LABOR Chief Complaint: Uterine Contractions. NELLY Calculator Estimated Delivery Date Method Current WG Current Estimate 06/18/24 Ultrasound #1 37w 6d Other Estimates 07/07/24 LMP (Uncertain) 35w 1d Comments: Mehreen is a 29y.o at 37w6d who presents in spontaneous labor that started at 0900 this morning. Denies LOF or vaginal bleeding. Baby girl is moving normally. She desires an unmedicated however since admission has used Nitrous without good relief and is asking about IV pain medications. We discussed risks and benefits of IV Fentanyl in active labor as well, she prefers to try this before the epidural. Cat 1 FHT. History of Present Expected Delivery Route/Plan - CNM FOB/partner - Michel Jauregui (first child) Clair Pearson for labor support. Prefers few visitors. Plans to keep placenta. WIC childbirth class GBS negative Specific Issues/Plan 1. Hx anxiety, therapist @ [facility], Rx'ed Wellbutrin & Lexapro; PHQ9 score=2, TSH=1.28. 2. 5P screen+, MJ use (quit), FOB sober x1 yr, initial UDS +THC, repeat at 28 wk=negative 3. cfDNA low risk female, CF carrier negative 4. Per anatomy survey, bilateral renal pelviectasis, repeat u/s @ 28 wks 4a. @ 27 wks: persistent right pelviectasis of 5mm, left kidney nml, NICK 20, EFW 47th%, 4b. recheck EFW/NICK @ 36 wks, EFW 51%ile, left renal pelvis stable, right renal pelvic 7mm dilation 5. Tobacco use - quit with 6. Hemorrhoids - relief methods discussed. Assessment: History Reviewed & Current Informed Consent Informed Consent: Regional Anesthesia Review of Systems All systems reviewed & are unremarkable except as noted in HPI and below PFSH All Active Problems (Updated 06/03/24 @ 19:52 by Callie Thompson CNM) Normal labor (Acute) Hemorrhoids during (Acute) Ultrasound recheck of pyelectasis, antepartum (Acute) Family history of drug use (Acute) (Acute) Anxiety (Chronic) Depression (Chronic) Environmental allergies (Acute 06/28/16) Medical History (Updated 06/03/24 @ 19:52 by Callie Thompson CNM) Former tobacco use Contraceptive surveillance Screening examination for STD (sexually transmitted disease) Emergency contraceptive counseling and prescription Surgical History (Updated 12/28/17 @ 14:36 by [employer] [place]) Tonsillectomy (~2011) Appendectomy (~2011) Family History Mother Anal cancer Social History Smoking/Tobacco Use Status: Current every day Smoking risk assessment performed?: Yes Alcohol Intake: never Drug use: Never Housing: apartment Do you feel safe at home: Yes Do you feel safe in your relationship?: Yes History History 1 Para 0 Hx # Term Pregnancies 0 Multiple births 0 Hx # Pregnancies 0 Ectopic pregnancies 0 AB induced 0 Hx Number of Living Children 0 AB spontaneous 0 Meds Allergies and Home Medications Allergies Allergy/AdvReac Type Severity Reaction Status Date / Time No Known Drug Allergies Allergy Unknown Verified 05/28/24 09:12 Home Medications ?Medication ?Instructions ?Recorded ?Confirmed ?Type magnesium oxide 420 mg tablet 420 mg PO DAILY 01/03/23 05/21/24 History bupropion HCl 100 mg tablet,12 hr 100 mg PO DAILY 11/02/23 05/21/24 History sustained-release (Wellbutrin SR) escitalopram oxalate 10 mg tablet 10 mg PO DAILY 11/02/23 05/21/24 History (Lexapro) vitamin with calcium 1 tab PO DAILY #90 tabs 11/02/23 05/21/24 Rx no.72-iron 27 mg-folic acid 1 mg tablet Exam Physical Exam Vital signs: Pulse BP 78 143/90 H 06/03/24 18:59 06/03/24 18:59 Vital Signs Reviewed: Yes Notable Details: BP taken during contraction, repeat planned in 15 minutes, no hx HTN Constitutional Comments: labor Detailed Labor and Delivery Exam Dilation: 5 Effacement (%): 80 station: -3 Position: JAYE Cervix position: mid Consistency: soft Huitron Score: Cervical Points Exam 0 1 2 3 Dilation Closed 1-2cm 3-4 cm 5-6cm Effacement 0-30% 40-50% 60-70% 80% Consistency Firm Medium Soft Station -3 -2 -1,0 +1,+2 Position Posterior Mid Anterior HUITRON Score(Cervical Ripeness Score): 9 Amniotic Membrane Status: Intact Monitor Mode: External Contraction Frequency(min): 2-3 Contraction Intensity: Moderate Fetus A Heart Rate Baseline: 135 Monitor Accelerations: Present Monitor Decelerations: None Variability: Moderate (6-25 BPM) Categories: Category I Est. Weight: 7 lb Assessment Note: reactive NST, Cat 1 Respiratory Exam Respiratory Exam: Normal Cardiovascular Exam Cardiovascular Exam: Normal Abdominal Exam Abdominal Exam: Normal (gravid, JAYE) Extremities Exam Extremities Exam: Normal Results Results Group Beta Strep: Negative Blood Type: O+ Rubella Status: Immune Varicella Immunity: Immune Lab Results: normal Risk Assessment Risk for Shoulder Dystocia Historical/Initial OB: NEGATIVE FOR: Pelvic Abnormality, Pre- BMI>30, Previous Shoulder Dystocia or Previous Macrosomia 36 Weeks: NEGATIVE FOR: Current Gestational DM, EFW>4500gms or Maternal Weight Gain>40lbs Delivery Plan @ 36wks: Risk for Pre-Eclampsia Date Initiated/Initials: not indicated Yes, if one or more: NEGATIVE FOR: Hx Pre-E/Gest HTN, Chronic HTN, Multiple Gestation, Pre-gestational DM, Renal Disease, Systemic Lupus or APA Syndrome Yes, if 2 or more: POSITIVE FOR: Nulliparity; NEGATIVE FOR: Age>= 35 yrs, >10yr btwn pregnancies, BMI>30, ethinicty, Mother/Sister w/ Pre-E or Previous IUGR Risk for Post- Hemorrhage Initial: NEGATIVE FOR: Multiple Gestation, Previous PPH, Known Clotting Deficiency, Grand Multiparity or Anticoagulation 36 Weeks: NEGATIVE FOR: Anemia, hgb<10, Low platelets(thrombocytopenia), Gestational HTN or Pre-E, Polyhydraminios or EFW>4500gms Risks Reviewed Risks Reviewed Upon Admission: Yes
[2024-06-03] MEDS: fentaNYL 100 MCG/2 ML VIAL IVP (19:55)
[2024-06-03] MEDS: Ondansetron 4 MG/2 ML VIAL 8 MG IVP (19:55)
[2024-06-03] MEDS: Normal Saline Flush 10 ML SYR (19:56)
[2024-06-03] MEDS: Normal Saline Flush 10 ML SYR IVP (19:56)
[2024-06-03] MEDS: Lactated Ringers 500 ML IV (20:19)
--- NOTE | 2024-06-03 20:39 | W.ANESPRE ---
General Info Date of Service Date Performed: 06/03/24 Height: 5 ft 3 in Meds Allergies and Home Medications Allergies Allergy/AdvReac Type Severity Reaction Status Date / Time No Known Drug Allergies Allergy Unknown Verified 05/28/24 09:12 Home Medication ?Medication ?Instructions ?Recorded magnesium oxide 420 mg tablet 420 mg PO DAILY 01/03/23 bupropion HCl 100 mg tablet,12 hr 100 mg PO DAILY 11/02/23 sustained-release (Wellbutrin SR) escitalopram oxalate 10 mg tablet 10 mg PO DAILY 11/02/23 (Lexapro) vitamin with calcium 1 tab PO DAILY #90 tabs 11/02/23 no.72-iron 27 mg-folic acid 1 mg tablet Current Visit Medications: Current Medications Generic Name Dose Route Start Last Admin Trade Name Hedy PRN Reason Stop Dose Admin Fentanyl/Ropivacaine 200 ml 06/03/24 20:30 Fentanyl/Ropivacaine 2 Mcg/Ml And 0.1% 200 Ml Cadd Cassette EP DIRECTED RON Ringer's Solution 500 mls @ 500 mls/hr 06/03/24 20:17 06/03/24 20:19 IV 06/03/24 21:16 500 mls/hr BOLUS ONE Administration IV Miscellaneous Supplies 1 each 06/03/24 19:15 Iv Access IV DIRECTED RON Sodium Chloride 0 ml 06/03/24 19:08 06/03/24 19:56 Normal Saline Flush 10 Ml Syr IVP 10 ml PRN PRN Administration Sodium Chloride 0 ml 06/03/24 20:00 Normal Saline Flush 10 Ml Syr IVP BID RON Sodium Chloride 0 ml 06/03/24 19:08 Normal Saline 10 Ml Vial IJ DIRECTED PRN PFSH Active Problems Active Problems: Problem Status Onset Code Normal labor Acute O80, Z37.9 Hemorrhoids during Acute O22.40 Ultrasound recheck of pyelectasis, antepartum Acute O35.EXX0 Family history of drug use Acute Z81.3 Acute Z34.90 Anxiety Chronic F41.9 Depression Chronic F32.A Environmental allergies Acute 06/28/16 Z91.09 Medical History Medical History (Updated 06/03/24 @ 19:52 by Callie Thompson CNM) Former tobacco use Contraceptive surveillance Screening examination for STD (sexually transmitted disease) Emergency contraceptive counseling and prescription Surgical History Surgical History (Updated 10/17/18 @ 14:36 by Telera [place]) Tonsillectomy (~2011) Appendectomy (~2011) Tobacco Smoking/Tobacco Use Status: Current every day Alcohol Alcohol Intake: never Substance Use Substance use: Never Prental History History 1 Para 0 Hx # Term Pregnancies 0 Multiple births 0 Hx # Pregnancies 0 Ectopic pregnancies 0 AB induced 0 Hx Number of Living Children 0 AB spontaneous 0 Vital Signs and Lab Results Vital Signs Most Recent Vital Signs in EMR: Most Recent Vital Signs Pulse BP Pulse Ox 100 H 158/73 H 100 06/03/24 20:26 06/03/24 20:26 06/03/24 20:23 Lab Results Blood Type / Crossmatch: Antibody Screen NEGATIVE 06/03/24 Complete Blood Count: White Blood Count 19.68 10^3/uL (4.4-10.8) H 06/03/24 18:37 Red Blood Count 4.37 10^6/uL (3.93-5.22) 06/03/24 18:37 Hemoglobin 14.0 g/dL (11.2-15.7) 06/03/24 18:37 Hematocrit 40.5 % (36.0-46.0) 06/03/24 18:37 Platelet Count 216 10^3/uL (130-400) 06/03/24 18:37 Complete Metabolic Panel: No Data to Display Liver Function Panel: No Data to Display Coagulation Panel: No Data to Display Cardiac Panel: No Data to Display Arterial Blood Gas: No Data to Display Venous Blood Gas: No Data to Display Pancreas Panel: No Data to Display Thyroid Panel: No Data to Display Infectious Disease: No Data to Display Blood Cultures: No Data to Display Toxicology Panel: No Data to Display Panel: No Data to Display Imaging and Studies Imaging and Studies Study information below may be from another EMR and interpreted by another provider. Please see original notes in EMR for more complete details. Pulmonary Function Summary: Pulmonary Function Test PATIENT NAME: SRINIVASAN TORO UNIT #: [id number] ADMITTING PROVIDER: BRANDEE MCCORD MD PRIMARY CARE PROVIDER: DANI VILLAFUERTE MD DATE OF ADMIT: 02/15/19 : 1995 DATE: FEBRUARY 15, 2019 REQUESTING PROVIDER: Bhavya Gonsales N.P. INTERPRETATION: SPIROMETRY: Spirometry shows mild obstructive airways disease with no significant bronchodilator response. LUNG VOLUMES: Lung volumes show no evidence of restriction. DIFFUSION CAPACITY: Borderline mildly reduced which is normal when corrected to alveolar volume. AIRWAY RESISTANCE: Normal. IMPRESSION: Mild obstructive airways disease with no significant bronchodilator response. Clinical correlation recommended. Dictated by: BRANDEE MCCORD MD Dict Date: 02/21/19 Dict Time: 1302 <Electronically signed by BRANDEE MCCORD MD> Date: 02/23/19 Time: 1054 Anesthesia Assessment and Plan Anesthesia History Personal History: No History of Anesthesia Complications Family History: No Family History of Anesthesia Complications Exercise Tolerance Exercise Tolerance: Metabolic Equivalents>4 Pertinent Negatives Pertinent Negatives: No Symptoms of GERD Cardiac & Pulmonary Exam Cardiac Exam: Normal S1/S2 Heart Sounds Pulmonary Exam: Clear Bilateral Breath Sounds Airway Exam Known Difficult Airway: No Mallampati Class: 2 Mouth Opening: Normal (> 3cm) Thyromental Distance: Greater than 3 cm Neck Range of Motion: Full ROM Neck Circumference: Normal Teeth Condition: Normal Dentition ASA Classification Emergency Case?: No NPO Status NPO Status: NPO Clears >2 hours, Solids >8 hours Status Status: Confirmed Anesthesia Plan Resuscitation Status: Full Code Anesthesia Technique: Epidural Anesthesia Airway Planned: Natural Airway Pain Management: Surgeon and patient request nerve block Monitors Used: Standard Monitors
[2024-06-03] MEDS: Oxytocin/Normal Saline 30 UNITS/500 ML BAG 95 UNITS IV (21:38)
[2024-06-03] MEDS: Lidocaine 1% Multi-Dose 20 ML VIAL 10 ML IJ (21:38)
--- NOTE | 2024-06-03 22:04 | OBVDS_ITS ---
Date of service: 06/03/24 Time of Service: 22:04 OB Labor/ Delivery Information Baby A Delivery Delivery Method: Assisted (VAVD) Presentation: Vertex Cephalic Position: Vertex Vertex Position: Right Occipital Anterior Cord Description-Baby A: 3 Vessels Amniotic Fluid: Clear Estimated Blood Loss: 200 Delivery Outcome: Liveborn Infant Complications: mild bradycardia and late decelerations with second stage, VAVD one pull needed for delivery Transferred: Remains with Mother Note: FHTs 1302 during first stage of labor. FHTs 120s in second stage. She progressed to full dilation and began pushing. Second stage huddle was done. VAVD by Dr. Saldivar for NRFHTs leading to delivery of female infant in DAVID position. Baby was placed on mother's abdomen and dried and stimulated. Spontaneous cry. Gord gases collected, 7/9. Cord was clamped and cut by ROSA Pearson . The placenta delivered spontaneously and appears to by intact with a three vessel cord. Pitocin IV was administered after delivery of the placenta. The perineum was inspected and intact, vaginal flood tear and right labial tear repaired . The baby did breastfeed. After delivery, Mother and baby and father of the baby were stable and bonding well in the delivery room and there were no complications. Providers Doctor: Kim Saldivar Nurse Director Skills: Callie Thompson Chief Of Harbor Patrol: Jamie Webster Slot Service Specialist: Pascual Harman Nurse: Cristin Lopez Nurse: Catina Jauregui Labor/Delivery Information Number of Babies in Womb: 1 Group Beta Strep: Negative Rubella Status: Immune Blood Type: O+ Varicella Immunity: Immune Maternal Complications: None Shoulder Dystocia: No Stages of Labor Complete Dilatation Date: 06/03/24 Complete Dilatation Time: 20:22 ROM Baby A: 06/03/24 ROM Baby A: 19:54 Baby A Infant Gender: Female Gestational Status: Early Term (37-38.6 wks) Procedure Procedures: Cord Blood Collection and Scalp Electrode Placement Interventions Repair of Laceration Type: Other (right labial shear repair and vaginal introitus repair), Laceration Extension: First Degree. Sponge Count Correct: Yes, Sharp Count Correct: Yes./ Assisted Delivery Baby A , Type of Assisted Delivery: Vacuum Indication for Vacuum Assisted Delivery: Non Reassuring Heart Rate, Date Applied: 06/03/24, Time of Application: 21:15, Reduction of Pressure Between Contractions: No, Number of Pulls: 1, Number of Pop Offs: 0, Number of Contractions: 1:
--- NOTE | 2024-06-03 22:21 | W.PM.OBNL1 ---
Date of service: 06/03/24 Time of Service: 20:22 Informed Consent Informed Consent: Regional Anesthesia Pelvic Exam Dilation: 10 Effacement (%): 100 station: +1 Contractions Monitor Mode: External Contraction Frequency(min): 2 Contraction Duration(sec): 60 Intensity: Strong Fetus A Monitor: Internal (FSE) Heart Rate Baseline: 120 Presentation: Vertex Variability: Moderate (6-25 BPM) Categories: Category II CategoryII Plan of Care: Intrauterine Resuscitation and Continuous Monitoring/Observation Accelerations: 15 X 15 Decelerations: Early and Late Recurrence: Intermittent Amniotic Membrane Status: Ruptured Assessment Note: MD on unit Assessment and Plan Assessment and plan (1) Normal labor: Status: Acute Assessment and plan: A: Complete dilation SROM clear fluid Cat 2 FHT P: IVF bolus infusing, FSE in place, MD on unit and aware of FHR status. anticipated Objective Pulse BP Pulse Ox 96 H 136/66 98 06/03/24 22:20 06/03/24 22:13 06/03/24 22:19 Laboratory Results Cord ABG pH Cancelled 06/03/24 Unknown Cord ABG pCO2 Cancelled 06/03/24 Unknown Cord ABG pO2 Cancelled 06/03/24 Unknown Cord ABG Base Excess Cancelled 06/03/24 Unknown Subjective Patient Reports: New Complaints Interval history since last seen: SROM clear fluid then epidural requested, now feeling rectal pressure, found to be complete, FSE in place due to difficulty in monitoring baby in hands and knees position. Early decelerations with intermittent late decelerations
--- NOTE | 2024-06-03 23:00 | ROE_ITS ---
Operative Note Operative Note PRE-OP DIAGNOSIS: Non-reassuring heart tones POST-OP DIAGNOSIS: same PROCEDURE: Vacuum-assisted vaginal delivery SURGEON: Kim Saldivar ASSISTING SURGEON: Callie Thompson Procedure Description: I was called to the room for non-reassuring heart tones. Upon presentation to the room, the account executive metalworking was found pushing with the patient in a sidelying position unmedicated. The patient was able to push the baby to a +3 station, but ascended following completion of push. Heart tones were being monitored by FSE and decelerations were dipping into the 70's. Mother was receiving a fluid bolus. I mentioned to the mother and her the possible need for vacuum-assistance. We discussed the risks higher risk for more ext ensive lacerations to the vagina, lacerations to the scalp, and possible bleeding within or under the skull of the baby. She attempted pushing a few more times changing sides, but these changes lead to little improvement in the heart tones, and return to baseline was diminishing. We attempted to remove the FSE, however, it was notably high up along the side of the baby's head and was not easily released. Therefore, the cord was cut to clear the area a vacuum would go. As mother attempted to push, again, an external monitor recorded FHT's in the 130's; however, mother's heart rate was also noted in the 130's, and mother was informed a vacuum would be applied. Hands were washed and sterile gloves were used. The scalp was palpated, and suggested Occiput mostly midline favoring the right. The patient had been urinating steadily throughout the pushing process. A Kiwi vacuum was placed 2 cm anterior to the posterior fontanelle centered over the sagittal suture. With the next pushing effort, the suction was increased to the middle of the green, and gentle traction was applied to facilitate pushing efforts. The head delivered with the first effort, and the vacuum was immediately released. No nuchal was appreciated. The rest of the body was delivered in a traditional fashion without issue. The baby was noted to be immediately vigorous. The remainder of the delivery was handed back to the account executive metalworking. Cord gases were collected and sent. The mother and baby tolerated the procedure well. Date of Procedure: 06/03/24
[2024-06-03] MEDS: Dibucaine 1% 28 GM TUBE TP (23:24)
[2024-06-03] MEDS: Docusate Sodium 100 MG CAP PO (23:25)
[2024-06-03] MEDS: Ibuprofen 600 MG TAB PO (23:25)
[2024-06-03] MEDS: Hamamelis Leaf/Glycerin 100 EACH BOX PR (23:25)
[2024-06-03] MEDS: Acetaminophen 325 MG TAB 650 MG PO (23:25)
[2024-06-04 00:30] VITALS: BP 131/76; PULSE 72; TEMP 37.6
[2024-06-04 04:30] VITALS: BP 146/76; PULSE 72; TEMP 36.9
[2024-06-04] MEDS: Acetaminophen 325 MG TAB 650 MG PO ×3 (05:12→19:28)
[2024-06-04] MEDS: Ibuprofen 600 MG TAB PO ×3 (05:13→19:28)
[2024-06-04 05:21] VITALS: BP 125/81
[2024-06-04 08:10] VITALS: BP 116/83; PULSE 95; RESP 17; TEMP 37.1; O2SAT 99
[2024-06-04] MEDS: buPROPion-CR 100 MG TABCR PO (09:02)
[2024-06-04] MEDS: Escitalopram 10 MG TAB PO (09:02)
[2024-06-04] MEDS: Docusate Sodium 100 MG CAP PO ×2 (11:13→19:28)
--- NOTE | 2024-06-04 12:07 | OBPPV_ITS ---
Date of service: 06/04/24 Time of Service: 12:07 Assessment and Plan Assessment and plan (1) Vacuum-assisted vaginal delivery: Status: Acute Assessment and plan: A: Stable PPD1, normotensive, pain managed with PO meds P: Routine care, and engorgement education given. Awaiting on breast pump today from Nicole MAJOR. (2) Lactating mother: Status: Acute Subjective Subjective Interval history: Accompanied by FOB Michel Body: feeling sore and stiff in back and hips Pain/Bleeding: moderate rubra, no clots, using ice packs and Tucks. Taking PO meds. minimal afterpain cramping Breast: everted nipples, noninjured, +colostrum, infant sleepy at breast but couplet is actively working at Sleep: about to get about 4 hours since delivery, no visitors today so will plan to rest Voiding/BM: normal voiding, due now, no BM yet +flatus, had BM in labor, taking Colace Support: Michel, feeling good abound boundary with family to not visit PP Moods: delighted, strong bonding Review: grateful for the support, proud Patient comments: No complaints, Pain well controlled, Tolerating diet and Flatus present; no Bowel Movement [place] baby status: Doing well, Nursing well and Strong Bonding Observed feeding status: Exclusively breast feeding Exam Physical Exam Vital signs: Temp Pulse Resp BP Pulse Ox 98.8 F 95 H 17 116/83 99 06/04/24 08:10 06/04/24 08:10 06/04/24 08:10 06/04/24 08:10 06/04/24 08:10 Vital Signs Reviewed: Yes Notable Details: mildly elevated BPs in labor, no elevations since delivery Constitutional Constitutional: no acute distress Breast Exam Bilateral: Breast Exam: Normal and Soft Nipple Exam: Normal and Uninjured Respiratory Exam Respiratory Exam: Normal Cardiovascular Exam Cardiovascular Exam: Normal Abdominal Exam Abdomen: Tender Fundal Exam Fundus: Firm and Other (at umbilicus to right, due to void) Exam Perineum: Repair Intact and Other (tender) Comments: lochia moderate rubra without clots Extremities Exam Extremity Exam: Normal; negative Calf Tenderness or Edema Neurological Exam Neurological Exam: Normal Psychiatric Exam Psychiatric Exam: Normal
[2024-06-04 19:30] VITALS: BP 118/71; PULSE 108; RESP 16; TEMP 37.2; O2SAT 98
[2024-06-04 23:30] VITALS: BP 130/83; PULSE 77; TEMP 36.6; O2SAT 97
[2024-06-05 06:15] VITALS: BP 109/70; PULSE 78; TEMP 37
[2024-06-05] MEDS: Ibuprofen 600 MG TAB PO (06:20)
[2024-06-05] MEDS: Acetaminophen 325 MG TAB 650 MG PO (06:20)
[2024-06-05 08:00] VITALS: BP 127/76; PULSE 78; RESP 12; TEMP 37.3
[2024-06-05] MEDS: buPROPion-CR 100 MG TABCR PO (08:28)
[2024-06-05] MEDS: Escitalopram 10 MG TAB PO (08:28)
--- NOTE | 2024-06-05 11:36 | OBPPV_ITS ---
Date of service: 06/05/24 Time of Service: 11:37 Assessment and Plan Assessment and plan (1) Term delivered: Status: Acute Assessment and plan: A: PPD#2, nml recovery Pleased with experience, off to a good start P: Discharge to home today F/up at 2 & 6 wks Written instructions reviewed and given to pt Condoms for BCM are planned (2) Lactating mother: Status: Acute Subjective Subjective Patient comments: No complaints, Pain well controlled, Tolerating diet and Flatus present Patient's Mood: happy, proud [place] baby status: Doing well, Nursing well, Rooming in and Strong Bonding Observed feeding status: Exclusively breast feeding Exam Physical Exam Vital signs: Temp Pulse Resp BP Pulse Ox 99.1 F 78 12 127/76 97 06/05/24 08:00 06/05/24 08:00 06/05/24 08:00 06/05/24 08:00 06/04/24 23:30 Vital Signs Reviewed: Yes Constitutional Constitutional: no acute distress and average body habitus HEENT Exam HEENT Exam: Normal Neck Exam Neck Exam: Normal Breast Exam Bilateral: Breast Exam: Normal and Soft Nipple Exam: Normal and Uninjured Respiratory Exam Respiratory Exam: Normal Cardiovascular Exam Cardiovascular Exam: Normal Abdominal Exam Abdomen: Other (soft, nontender) Fundal Exam Fundus: Below Umbilicus and Firm Rectal Exam Rectal Exam: Normal Exam Perineum: Repair Intact Extremities Exam Extremity Exam: Normal, Full ROM and Warm to Touch Back/Spine/Pelvis Exam Back Exam: Normal Skin Exam Skin Exam: Normal Neurological Exam Neurological Exam: Normal Psychiatric Exam Psychiatric Exam: Normal
--- NOTE | 2024-06-05 11:49 | W.PM.OBDISCH ---
Date of service: 06/05/24 Time of Service: 11:49 DS: Diagnosis Discharge Diagnosis (1) Term delivered: Status: Acute (2) Lactating mother: Status: Acute Discharge Plan Disposition Patient Disposition: Home Condition: Good Discharge Details Reason For Visit: Term Labor Admit Date/Time: 06/03/24 18:20 Admit Provider: Callie Thompson Attending Provider: Callie Thompson Primary Care Provider: Bhavya Gonsales Hospital Course Hospital Course: Arrived in active labor and on day of admission, is off to a good start, discharge on day 2. Referral made to [facility] for home visiting support. Home Meds and New Rx's Prescriptions: No Action magnesium oxide 420 mg tablet 420 mg PO DAILY escitalopram oxalate [Lexapro] 10 mg tablet 10 mg PO DAILY bupropion HCl [Wellbutrin SR] 100 mg tablet sustained-release 12 hr 100 mg PO DAILY PNV,calcium 14-fvid-qxiyo acid 27 mg iron- 1 mg tablet 1 tab PO DAILY Qty: 90 6RF Rx Instructions: give with food (meal/snack) Discharge Instructions Additional Instructions: Please keep your 2 and 6 week appointments with the informatics pharmacist, call for any and all questions and concerns. Stand Alone Forms: BC Instructions, BC Post Vaginal Deliver Activity:: Activity as Tolerated Equipment/Supplies:: No Equipment Needed Diet:: Normal Diet OB:DS Summary Summary Vaginal Delivery Method: Assisted (VAVD) Episiotomy Description: None Laceration Description: Other (right labial shear repair and vaginal introitus repair) Laceration Extension: First Degree Contraception Discussed Contraception Discussed: Yes Contraceptive Plan: Foam/Condoms, [place] Gender-Baby A: Female weight: 7 lb 0.524 oz Status at Discharge Functional status at discharge: independent ambulation Overall status at discharge: patient is progressing back to baseline Mental Status: mental status grossly normal Speech and Movement: speech and movement normal Mood: congruent mood Affect: normal affect Quality:SDOH Health Related Social Needs: No Data to Display Exam Physical Exam Vital signs: Temp Pulse Resp BP Pulse Ox 99.1 F 78 12 127/76 97 06/05/24 08:00 06/05/24 08:00 06/05/24 08:00 06/05/24 08:00 06/04/24 23:30 Constitutional Constitutional: no acute distress and average body habitus HEENT Exam HEENT Exam: Normal Neck Exam Neck Exam: Normal Breast Exam Bilateral: Breast Exam: Normal and Soft Respiratory Exam Respiratory Exam: Normal Cardiovascular Exam Cardiovascular Exam: Normal Abdominal Exam Abdomen: Other (soft, nontender) Fundal Exam Fundus: Below Umbilicus and Firm Rectal Exam Rectal Exam: Normal Exam Perineum: Repair Intact Extremities Exam Extremity Exam: Normal, Full ROM and Warm to Touch Back/Spine/Pelvis Exam Back Exam: Normal Skin Exam Skin Exam: Normal Neurological Exam Neurological Exam: Normal Psychiatric Exam Psychiatric Exam: Normal PFSH All Active Problems (Updated 06/05/24 @ 11:38 by Jessica Luevano) Term delivered (Acute) Lactating mother (Acute) Vacuum-assisted vaginal delivery (Acute) Hemorrhoids during (Acute) Ultrasound recheck of pyelectasis, antepartum (Acute) Family history of drug use (Acute) Anxiety (Chronic) Depression (Chronic) Environmental allergies (Acute 06/28/16) Medical History (Updated 06/05/24 @ 11:38 by Jessica Luevano) Former tobacco use Contraceptive surveillance Screening examination for STD (sexually transmitted disease) Emergency contraceptive counseling and prescription Surgical History (Updated 12/28/17 @ 14:36 by [facility]) Tonsillectomy (~2011) Appendectomy (~2011) Family History Mother Anal cancer Social History Smoking/Tobacco Use Status: Current every day Smoking risk assessment performed?: Yes Alcohol Intake: never Drug use: Never Housing: apartment Do you feel safe at home: Yes Do you feel safe in your relationship?: Yes History History 1 Para 0 Hx # Term Pregnancies 0 Multiple births 0 Hx # Pregnancies 0 Ectopic pregnancies 0 AB induced 0 Hx Number of Living Children 0 AB spontaneous 0 DS: Data Vitals/I&O Vitals and I&O: Vital Signs Temperature 99.1 F 06/05/24 08:00 Temperature Source Oral 06/05/24 08:00 Pulse 78 06/05/24 08:00 Pulse Rhythm Regular 06/05/24 08:00 Respiratory Rate 12 06/05/24 08:00 Blood Pressure 127/76 06/05/24 08:00 Blood Pressure Mean 93 06/05/24 08:00 Pulse Oximetry 97 06/04/24 23:30 Comment BP recheck 06/04/24 05:21 Intake & Output 06/04/24 06/04/24 06/05/24 11:59 23:59 11:59 Intake Total 500 / 500 Output Total 1900 / 0 Balance -1400 / -1400 Intake: IV 500 / 500 Output: Urine 1899 / 0 Other: Urine Color Yellow
[2024-06-05] MEDS: Lidocaine 1% Multi-Dose 20 ML VIAL IJ (13:20)
[2024-06-05] MEDS: Hamamelis Leaf/Glycerin 100 EACH BOX PR (13:20)
== END 2024-06-05 13:55 | disposition home or self-care (01) | DRG 806 ==
PROVIDERS: Admitting Provider Advanced Practice Midwife; PCP Nurse Practitioner Family; Visit Provider Advanced Practice Midwife
DX: O22.43 Hemorrhoids in pregnancy, third trimester; Z37.0 Single live birth; O35.EXX0 Maternal care for other (suspected) fetal abnormality and damage, fetal genitourinary anomalies, not applicable or unspecified; Z3A.37 37 weeks gestation of pregnancy; O76 Abnormality in fetal heart rate and rhythm complicating labor and delivery; O99.344 Other mental disorders complicating childbirth; F41.8 Other specified anxiety disorders; O70.0 First degree perineal laceration during delivery; O12.03 Gestational edema, third trimester
CPT/HCPCS: 85027; 86850; 86900; 86901; J2003; J2405; J3010